=== PATIENT | male | born 1975 | race Caucasian/White ===

== ENCOUNTER 2020-01-17 06:47 | Day surgery (SDC) | payer OTHER, MEDICARE, MEDICAID ==
[~2020-01-17] VITALS: Ht 177.8 cm; Wt 87.3 kg
[~2020-01-17 06:47] MED LIST: ACET-784 PO; CALC-26 PO; DIVA125SP PO; DOCU-342 PO; LACT30L PO; LEVO330T5 PO; MULT-723 PO; RINGERS SOLUTION,LACTATED 1,000 ML IV ONE; RISP3 PO
[2020-01-17] MEDS ORDERED: DEXAMETHASONE SOD PHOS 4 MG/ML VIAL IVP ONE (06:48)
[2020-01-17] MEDS ORDERED: ONDANSETRON HCL 4 MG/2 ML VIAL IVP ONE (06:48)
[2020-01-17] MEDS ORDERED: FentaNYL CITRATE-PF 100 MCG/2 ML VIAL IVP ONE (06:48)
[2020-01-17] MEDS ORDERED: PROPOFOL 1% 20 ML VIAL IVP ONE (06:48)
[2020-01-17] MEDS ORDERED: MIDAZOLAM HCL 2 MG/2 ML VIAL IVP ONE (06:48)
[2020-01-17] MEDS ORDERED: 0.9% SODIUM CHLORIDE 10 ML VIAL IVP ONE (06:48)
[2020-01-17] MEDS ORDERED: LIDOCAINE/PF 2% 5 ML VIAL IM ONE (06:48)
[2020-01-17] MEDS ORDERED: SUCCINYLCHOLINE CHLORIDE 20 MG/ML 10 ML VIAL IVP ONE (06:48)
[2020-01-17] MEDS ORDERED: RINGERS SOLUTION,LACTATED 1,000 ML IV ONE ×2 (07:00→12:03)
[2020-01-17] MEDS ORDERED: AMPICILLIN SODIUM 1 GM/VIAL ONE (07:15)
[2020-01-17] MEDS ORDERED: SODIUM CHLORIDE 0.9% 100 ML ONE (07:16)
[2020-01-17 07:50] LABS: BASOPHILS % (AUTO) 0.3 % (0.0-2.0); EOSINOPHILS % (AUTO) 1.5 % (1.0-6.0); HEMATOCRIT 44.4 % (41-53); HEMOGLOBIN 14.9 g/dL (13.5-17.5); LYMPHOCYTES # (AUTO) 1.4 K/uL (1.0-4.8); LYMPHOCYTES % (AUTO) 14.2 % (22.0-44.0); MEAN CORPUSCULAR HEMOGLOBIN 30.7 pg (26.0-34.0); MEAN CORPUSCULAR HGB CONC 33.6 G/dL (31.0-37.0); MEAN CORPUSCULAR VOLUME 92 fL (80-100); MONOCYTES # (AUTO) 0.6 K/uL (0.1-1.0); MONOCYTES % (AUTO) 6.1 % (2.0-9.0); NEUTROPHILS # (AUTO) 7.9 K/uL (1.8-7.7); NEUTROPHILS % (AUTO) 77.9 % (40.0-70.0); PLATELET COUNT (AUTO) 263 K/uL (150-450); RED BLOOD CELL COUNT(AUTO) 4.85 MIL/uL (4.50-5.90)
[2020-01-17 08:00] LABS: ANION GAP 10 mmol/L (8-16); CALCIUM, TOTAL 8.7 mg/dL (8.8-10.5); CARBON DIOXIDE 27 mmol/L (22-29); CHLORIDE 106 mmol/L (98-107); CREATININE 0.87 mg/dL (0.60-1.30); GLOMERULAR FILTR. RATE CALC > 60 mL/min (>60); GLUCOSE,RANDOM 108 mg/dL (70-110); SODIUM SERUM 143 mmol/L (136-145); UREA NITROGEN, BLOOD 12 mg/dL (7-18)
[2020-01-17 08:05] LABS: INR 1.1 (0.9-1.1); PROTHROMBIN TIME 10.7 SEC (9.4-11.6)
[2020-01-17 08:06] LABS: ALANINE AMINOTRANSFERASE 30 U/L (12-78); ALBUMIN 3.8 g/dL (3.4-5.0); ALKALINE PHOSPHATASE 53 U/L (46-116); ASPARTATE AMINOTRANSFERASE 17 U/L (15-37); BILIRUBIN,TOTAL 0.4 mg/dL (0.1-1.0); TOTAL PROTEIN, SERUM 7.7 g/dL (6.4-8.2)
== END 2020-01-17 14:20 | disposition home or self-care (01) ==
LOC: SURGERY 06:47
PROVIDERS: ATTEND Dentist General Practice
DX: K02.9 Dental caries, unspecified (principal); K05.30 Chronic periodontitis, unspecified; K03.89 Other specified diseases of hard tissues of teeth; G40.909 Epilepsy, unspecified, not intractable, without status epilepticus; F84.0 Autistic disorder; F90.9 Attention-deficit hyperactivity disorder, unspecified type; Z79.899 Other long term (current) drug therapy; Z79.01 Long term (current) use of anticoagulants
CPT/HCPCS: 36415; 41899; 71045; 80053; 85025; 85610; 85730; 93005; J0290; J0330; J1100; J2250; J2405; J2704; J3010; J3490; J7050; J7120

== ENCOUNTER 2022-09-30 06:34 | Day surgery (SDC) | payer OTHER, MEDICARE, MEDICAID ==
[~2022-09-30] VITALS: Ht 172.7 cm; Wt 75.0 kg
[~2022-09-30 06:34] MED LIST changes: +DIVA125C20 PO; -DIVA125SP PO; -DOCU-342 PO; +DOCU-350 PO; +LACT10SO10 PO; -LACT30L PO; -RISP3 PO; +RISP3TAB35 PO
[2022-09-30 07:24] LABS: COVID AG,FIA SOURCE NASAL SWAB
[2022-09-30 07:26] LABS: BASOPHILS % (AUTO) 0.3 % (0.0-2.0); EOSINOPHILS % (AUTO) 1.7 % (1.0-6.0); HEMATOCRIT 46.2 % (41-53); HEMOGLOBIN 15.4 g/dL (13.5-17.5); LYMPHOCYTES # (AUTO) 1.6 K/uL (1.0-4.8); LYMPHOCYTES % (AUTO) 16.9 % (22.0-44.0); MEAN CORPUSCULAR HEMOGLOBIN 30.9 pg (26.0-34.0); MEAN CORPUSCULAR HGB CONC 33.3 G/dL (31.0-37.0); MEAN CORPUSCULAR VOLUME 93 fL (80-100); MONOCYTES # (AUTO) 0.7 K/uL (0.1-1.0); MONOCYTES % (AUTO) 7.4 % (2.0-9.0); NEUTROPHILS # (AUTO) 6.9 K/uL (1.8-7.7); NEUTROPHILS % (AUTO) 73.7 % (40.0-70.0); PLATELET COUNT (AUTO) 252 K/uL (150-450); RED BLOOD CELL COUNT(AUTO) 4.99 MIL/uL (4.50-5.90); RED CELL DISTRIBUTION WIDTH 13.3 % (11.5-14.5)
[2022-09-30] MEDS ORDERED: AMPICILLIN SODIUM 2 GM/NS 100 ML IV ONE (07:29)
[2022-09-30 07:33] LABS: ANION GAP 7 mmol/L (8-16); CALCIUM, TOTAL 9.6 mg/dL (8.8-10.5); CARBON DIOXIDE 29 mmol/L (22-29); CHLORIDE 104 mmol/L (98-107); CREATININE 1.07 mg/dL (0.60-1.30); GLUCOSE,RANDOM 131 mg/dL (70-110); POTASSIUM 3.8 mmol/L (3.5-5.1); SODIUM SERUM 140 mmol/L (136-145); UREA NITROGEN, BLOOD 10 mg/dL (7-18)
[2022-09-30 07:37] LABS: GLOMERULAR FILTR. RATE CALC > 60 mL/min (>60)
[2022-09-30 07:40] LABS: ALANINE AMINOTRANSFERASE 31 U/L (12-78); ALBUMIN 3.7 g/dL (3.4-5.0); ALKALINE PHOSPHATASE 57 U/L (46-116); ASPARTATE AMINOTRANSFERASE 19 U/L (15-37); BILIRUBIN,TOTAL 0.3 mg/dL (0.1-1.0); TOTAL PROTEIN, SERUM 8.2 g/dL (6.4-8.2)
[2022-09-30 07:42] LABS: INR 1.1 (0.9-1.1); PROTHROMBIN TIME 11.4 SEC (9.4-11.6)
[2022-09-30] MEDS ORDERED: LORA-1000 PO (08:44)
[2022-09-30] MEDS ORDERED: PANT-31 PO (08:44)
[2022-09-30] MEDS ORDERED: RISP3TAB35 PO ×2 (08:44)
[2022-09-30] MEDS ORDERED: CETI-450 PO (08:44)
[2022-09-30] MEDS ORDERED: DIVA-112 PO (08:44)
[2022-09-30] MEDS ORDERED: FentaNYL CITRATE PF 100 MCG/2 ML VIAL IVP PRN (11:30)
[2022-09-30] MEDS ORDERED: METOCLOPRAMIDE HCL 5 MG/ML 2 ML VIAL IVP ONE (12:00)
[2022-09-30] MEDS ORDERED: FentaNYL CITRATE PF 100 MCG/2 ML VIAL IVP ONE (12:00)
[2022-09-30] MEDS ORDERED: MIDAZOLAM HCL 2 MG/2 ML VIAL IVP ONE (12:00)
[2022-09-30] MEDS ORDERED: DEXAMETHASONE SOD PHOS 4 MG/ML VIAL IVP ONE (12:00)
[2022-09-30] MEDS ORDERED: PROPOFOL 1% 20 ML VIAL IVP ONE (12:00)
[2022-09-30] MEDS ORDERED: ONDANSETRON HCL 4 MG/2 ML VIAL IVP ONE (12:00)
[2022-09-30] MEDS ORDERED: ROCURONIUM BROMIDE 10 MG/ML 5 ML VIAL IVP ONE (12:00)
[2022-09-30] MEDS ORDERED: LIDOCAINE/PF 2% 5 ML SYRINGE IVP ONE (12:00)
[2022-09-30] MEDS ORDERED: OXYGEN THERAPY IH SCH (20:00)
== END 2022-09-30 13:10 | disposition home or self-care (01) ==
LOC: SURGERY 06:34
PROVIDERS: ATTEND Dentist General Practice
DX: K05.30 Chronic periodontitis, unspecified (principal); K02.9 Dental caries, unspecified; K03.6 Deposits [accretions] on teeth; Z79.899 Other long term (current) drug therapy; Z98.890 Other specified postprocedural states; Z79.01 Long term (current) use of anticoagulants; F84.0 Autistic disorder; F90.9 Attention-deficit hyperactivity disorder, unspecified type; G40.909 Epilepsy, unspecified, not intractable, without status epilepticus; K21.9 Gastro-esophageal reflux disease without esophagitis; Z20.822 Contact with and (suspected) exposure to COVID-19
CPT/HCPCS: 41899; 71045; 87426; 80053; 85025; 85610; 85730; 36415; 93005; J0290; J2704; J1100; J3010; J2765; J2250; J2405; J3490 ×2; C9803

== ENCOUNTER 2024-03-29 06:22 | Day surgery (SDC) | payer OTHER, MEDICARE, MEDICAID ==
[~2024-03-29] VITALS: Ht 180.3 cm; Wt 77.2 kg
[~2024-03-29 06:22] MED LIST changes: +CETI-450 PO; +DIVA-112 PO; -DIVA125C20 PO; -DOCU-350 PO; +DOCU-412 PO; +LORA-1000 PO; +PANT-31 PO; -RINGERS SOLUTION,LACTATED 1,000 ML IV ONE
[2024-03-29] MEDS ORDERED: AMPICILLIN SODIUM 2 GM/NS 100 ML IV ONE (07:09)
[2024-03-29] MEDS ORDERED: RINGERS SOLUTION,LACTATED 1,000 ML IV ONE (07:32)
[2024-03-29 08:10] LABS: BASOPHILS % (AUTO) 0.2 % (0.0-2.0); EOSINOPHILS % (AUTO) 0.8 % (1.0-6.0); HEMATOCRIT 41.7 % (41-53); LYMPHOCYTES # (AUTO) 1.7 K/uL (1.0-4.8); LYMPHOCYTES % (AUTO) 23.3 % (22.0-44.0); MEAN CORPUSCULAR HEMOGLOBIN 30.8 pg (26.0-34.0); MEAN CORPUSCULAR HGB CONC 33.5 G/dL (31.0-37.0); MEAN CORPUSCULAR VOLUME 92 fL (80-100); MONOCYTES # (AUTO) 0.5 K/uL (0.1-1.0); MONOCYTES % (AUTO) 7.1 % (2.0-9.0); NEUTROPHILS % (AUTO) 68.6 % (40.0-70.0); PLATELET COUNT (AUTO) 270 K/uL (150-450); RED BLOOD CELL COUNT(AUTO) 4.54 MIL/uL (4.50-5.90); RED CELL DISTRIBUTION WIDTH 13.4 % (11.5-14.5); WHITE BLOOD COUNT (AUTO) 7.2 K/uL (4.5-11.0)
[2024-03-29 08:17] LABS: INR 1.1 (0.9-1.1); PROTHROMBIN TIME 11.2 SEC (9.4-11.6)
[2024-03-29 08:35] LABS: ALANINE AMINOTRANSFERASE 20 U/L (12-78); ALBUMIN 3.4 g/dL (3.4-5.0); ALKALINE PHOSPHATASE 52 U/L (46-116); ANION GAP 9 mmol/L (8-16); ASPARTATE AMINOTRANSFERASE 15 U/L (15-37); BILIRUBIN,TOTAL 0.3 mg/dL (0.1-1.0); CALCIUM, TOTAL 8.7 mg/dL (8.8-10.5); CARBON DIOXIDE 27 mmol/L (22-29); CHLORIDE 105 mmol/L (98-107); CREATININE 0.79 mg/dL (0.60-1.30); GLOMERULAR FILTR. RATE CALC > 60 mL/min (>60); GLUCOSE,RANDOM 114 mg/dL (70-110); POTASSIUM 3.8 mmol/L (3.5-5.1); SODIUM SERUM 141 mmol/L (136-145); TOTAL PROTEIN, SERUM 7.4 g/dL (6.4-8.2); UREA NITROGEN, BLOOD 11 mg/dL (7-18)
[2024-03-29] MEDS ORDERED: MIDAZOLAM HCL 5 MG/ML VIAL ONE (10:08)
[2024-03-29] MEDS ORDERED: FentaNYL CITRATE PF 100 MCG/2 ML VIAL ONE (10:13)
[2024-03-29] MEDS: RINGERS SOLUTION,LACTATED 1,000 ML IV ONE (10:24)
[2024-03-29] MEDS ORDERED: ONDANSETRON HCL 4 MG/2 ML VIAL ONE (12:00)
[2024-03-29] MEDS ORDERED: SUGAMMADEX SODIUM 200 MG/2 ML VIAL IVP ONE (12:00)
[2024-03-29] MEDS ORDERED: ROCURONIUM BROMIDE 10 MG/ML 5 ML VIAL ONE (12:00)
[2024-03-29] MEDS ORDERED: GLYCOPYRROLATE 0.2 MG/ML VIAL ONE (12:00)
[2024-03-29] MEDS ORDERED: CeFAZolin SODIUM 1 GM VIAL ONE (12:00)
[2024-03-29] MEDS ORDERED: LIDOCAINE/PF 2% 5 ML VIAL ONE (12:00)
[2024-03-29] MEDS ORDERED: PROPOFOL 1% 20 ML VIAL IVP ONE (12:00)
[2024-03-29] MEDS ORDERED: DEXAMETHASONE SOD PHOS 4 MG/ML VIAL ONE (12:00)
== END 2024-03-29 13:20 | disposition home or self-care (01) ==
LOC: SURGERY 06:22
PROVIDERS: ATTEND Dentist General Practice
DX: K02.9 Dental caries, unspecified (principal); K03.6 Deposits [accretions] on teeth; K05.30 Chronic periodontitis, unspecified; F90.8 Attention-deficit hyperactivity disorder, other type; K21.9 Gastro-esophageal reflux disease without esophagitis; G43.909 Migraine, unspecified, not intractable, without status migrainosus; K59.00 Constipation, unspecified; F90.9 Attention-deficit hyperactivity disorder, unspecified type; F84.0 Autistic disorder; Z79.01 Long term (current) use of anticoagulants; Z79.899 Other long term (current) drug therapy; Z98.890 Other specified postprocedural states
CPT/HCPCS: 41899; 71045; 80053; 85025; 85610; 85730; 36415; 93005; J0290; J2704; J0690; J1100; J3010; J3490 ×3; J2405; J2250; Q9967; J7120

== ENCOUNTER 2025-08-01 08:37 | Day surgery (SDC) | payer OTHER, MEDICARE ==
[~2025-08-01] VITALS: Ht 180.3 cm; Wt 80.9 kg
[~2025-08-01 08:37] MED LIST changes: -CETI-450 PO; +CETI10TA77 PO; -LORA-1000 PO; +LORA1TAB25 PO
[2025-08-01] MEDS ORDERED: OXYMETAZOLINE HCL 0.05% 15 ML NASAL SPRAY NASAL ONE (08:45)
[2025-08-01 08:55] LABS: PLATELET COUNT (AUTO) 265 K/uL (150-450); RED BLOOD CELL COUNT(AUTO) 4.86 MIL/uL (4.50-5.90); RED CELL DISTRIBUTION WIDTH 13.7 % (11.5-14.5); WHITE BLOOD COUNT (AUTO) 6.8 K/uL (4.5-11.0)
[2025-08-01 09:05] LABS: CALCIUM, TOTAL 8.6 mg/dL (8.8-10.5); CREATININE 0.75 mg/dL (0.60-1.30); GLOMERULAR FILTR. RATE CALC > 60 mL/min (>60); GLUCOSE,RANDOM 113 mg/dL (70-110); SODIUM SERUM 139 mmol/L (136-145); UREA NITROGEN, BLOOD 10 mg/dL (7-18)
[2025-08-01 09:09] LABS: ASPARTATE AMINOTRANSFERASE 17 U/L (15-37); TOTAL PROTEIN, SERUM 7.4 g/dL (6.4-8.2)
[2025-08-01] MEDS ORDERED: LIDOCAINE/PF 2% 5 ML VIAL ONE (10:06)
[2025-08-01] MEDS ORDERED: ONDANSETRON HCL 4 MG/2 ML VIAL ONE (10:06)
[2025-08-01] MEDS ORDERED: SUGAMMADEX SODIUM 200 MG/2 ML VIAL IVP ONE (10:06)
[2025-08-01] MEDS ORDERED: ROCURONIUM BROMIDE 10 MG/ML 5 ML VIAL ONE (10:06)
[2025-08-01] MEDS ORDERED: PROPOFOL 1% 20 ML VIAL IVP ONE (10:06)
[2025-08-01] MEDS ORDERED: DEXAMETHASONE SOD PHOS 4 MG/ML VIAL ONE (10:06)
[2025-08-01] MEDS: RINGERS SOLUTION,LACTATED 1,000 ML IV ONE (11:02)
== END 2025-08-01 13:55 | disposition home or self-care (01) ==
LOC: SDS 08:37
PROVIDERS: ATTEND Dentist General Practice
DX: K05.30 Chronic periodontitis, unspecified (principal); K02.9 Dental caries, unspecified; F90.9 Attention-deficit hyperactivity disorder, unspecified type
CPT/HCPCS: 41899; 71045; 80053; 85025; 85610; 85730; 36415; 93005; J2704; J1100; J3490 ×3; J2405